=== PATIENT | male | born 1970 | race African-American/Black ===

== ENCOUNTER → 2023-04-20 | Outpatient (REF) | payer OTHER ==
[~2023-04-20] MED LIST: MINERAL OIL/PETROLAT/GLYCERI 6OZ BTL ONE
== END ==
LOC: WCC 08:00
PROVIDERS: ATTEND Plastic Surgery
DX: T25.232A Burn of second degree of left toe(s) (nail), initial encounter (principal); T25.222A Burn of second degree of left foot, initial encounter; T25.221A Burn of second degree of right foot, initial encounter